=== PATIENT | female | born 1985 | race Caucasian/White ===

== ENCOUNTER → 2017-03-19 | Outpatient (CLI) | payer OTHER ==
[~2017-03-19] MED LIST: OMNIPAQUE 350 MG/ML, 100ML BOTTLE ONE; PREN1TAB60 PO
== END | disposition home or self-care (01) ==
LOC: RAD 17:37
PROVIDERS: ATTEND Student in an Organized Health Care Education/Training Program
DX: O90.2 Hematoma of obstetric wound (principal); H04.2 Epiphora
CPT/HCPCS: 74177; Q9967